=== PATIENT | male | born 1980 | race Caucasian/White ===

== ENCOUNTER → 2016-02-21 | Outpatient (CLI) | payer OTHER ==
[~2016-02-21] MED LIST: OXYC-109 PO
--- NOTE | 2016-02-21 13:29 | Diagnostic Imaging Report ---
INDICATION: Fell 3 days ago, cervical neck pain and lumbar pain. COMPARISON STUDIES: Cervical spine from 2009. FINDINGS: Frontal, lateral and bilateral oblique views of the cervical spine demonstrate previous ACDF of C4-C5 and C6-C7. The bone plug at C4-C5 is well incorporated. The one at C6-C7 is only partially incorporated. There is some erosion into the adjacent endplates. The disc space height posterior to this is preserved. No fractures or subluxations are present. Remainder of the disc spaces appear normal. There is no encroachment upon the neuroforamina. IMPRESSION: There are postoperative changes with no acute findings. Dictated by: Dictated on workstation # [id number]
--- NOTE | 2016-02-21 14:00 | Diagnostic Imaging Report ---
INDICATION: Lumbar back pain, status post fall on 02/18/2016. Comparison studies: None. FINDINGS: Frontal, lateral, and bilateral oblique views of the lumbar spine demonstrate some irregularity of the inferior endplate of L2 which appears to be chronic and probably due to a Schmorl node. Disc space narrowing is present at L2-L3 and L3-L4. Scoliosis is present. IMPRESSION: There are degenerative changes of the lumbar spine with no acute findings. Dictated by: Dictated on workstation # [id number]
== END ==
LOC: RAD 12:12
PROVIDERS: ATTEND Physician Assistant Medical
DX: M54.2 Cervicalgia (principal); M54.5 Low back pain
CPT/HCPCS: 72050; 72110